=== PATIENT | male | born 1970 | race Caucasian/White ===

== ENCOUNTER 2020-12-26 07:30 | Day surgery (SDC) | payer BC ==
[2020-12-19 17:26] LABS: BASOPHILS % (AUTO) 0.7 % (0-1); EOSINOPHILS # (AUTO) 0.2 X10'3 (0-0.9); EOSINOPHILS % (AUTO) 3.6 % (0-6); LYMPHOCYTES # (AUTO) 1.7 X10'3 (1.1-4.8); LYMPHOCYTES % (AUTO) 31.5 % (21-51); MEAN CORPUSCULAR HEMOGLOBIN 30.3 PG (27.0-31.0); MEAN CORPUSCULAR HGB CONC 33.9 g/dL (33.0-36.5); MEAN CORPUSCULAR VOLUME 89.3 FL (78-98); MEAN PLATELET VOLUME 8.3 FL (7.4-10.4); MONOCYTES # (AUTO) 0.5 X10'3 (0-0.9); MONOCYTES % (AUTO) 9.4 % (2-12); NEUTROPHILS % (AUTO) 54.8 % (42-75); PRE OP HEMATOCRIT 46.5 % (42.0-52.0); PRE OP HEMOGLOBIN 15.8 g/dL (14.0-17.9); PRE OP PLATELET COUNT 271 X10'3 (140-440); PRE OP PROTIME 10.4 SECONDS (9.0-12.0); RED BLOOD COUNT 5.21 X10'6 (4.70-6.10); RED CELL DISTRIBUTION WIDTH 13.4 % (11.5-14.5)
[2020-12-19 17:28] LABS: ALBUMIN 4.4 G/DL (3.4-5.0); ALBUMIN/GLOBULIN RATIO 1.3 (1.1-1.5); ALKALINE PHOSPHATASE 59 IU/L (46-116); BLOOD UREA NITROGEN 20 MG/DL (7-18); BUN/CREATININE RATIO 14.1 (5.4-32.0); CALCIUM 9.3 MG/DL (8.5-10.1); CHLORIDE 103 MMOL/L (99-107); CREATININE 1.42 MG/DL (0.60-1.10); PRE OP ALT 49 U/L (30-65); PRE OP ANION GAP 10 (8-16); PRE OP AST 23 U/L (10-37); PRE OP BILIRUB, TOTAL 0.7 MG/DL (0.0-1.0); PRE OP GLUCOSE 88 MG/DL (70-104); PRE OP SODIUM 142 MMOL/L (135-145); TOTAL CARBON DIOXIDE 28.7 MMOL/L (24-32); TOTAL PROTEIN 7.8 G/DL (6.4-8.2); eGFR 53 ML/MIN
[~2020-12-26] VITALS: Ht 193 cm; Wt 121.9 kg
[2020-12-26] VITALS (11 sets, daily range): BP systolic 131–148; BP diastolic 81–101
[~2020-12-26 07:30] MED LIST: ASCO500C17 PO; CHOL20004 PO; LIDOcaine 1% W/epiNEPHrine 1:100,000 20ml vial ONE; MAGNESIUM THREONATE PO; cefTAZidime 1gm inj ONE; cocaine 4% topical solution 4ml bottle ONE; diazepam 5mg tablet PO PRN; famotidine 20mg tablet PO ONE; methylPREDNISolone acetate 80mg/ml inj**IM only ONE; mupirocin 2% ointment 22GM ONE; oxymetazoline 15 ML nasal spray NS ONE; ringers solution, lacted 1,000 ML IV SCH
[2020-12-26] MEDS: oxymetazoline 15 ML nasal spray NS PRN ×3 (08:29→10:44)
[2020-12-26] MEDS ORDERED: proCHLORperazine 10 MG/2 ml inj IV PRN (09:55)
[2020-12-26] MEDS ORDERED: ringers solution, lacted 1,000 ML IV SCH (09:55)
[2020-12-26] MEDS ORDERED: morphine 2 MG/ML inj. syringe IV PRN (09:55)
[2020-12-26] MEDS ORDERED: meperidine/PF 25mg/ml syringe IV PRN ×3 (09:55)
[2020-12-26] MEDS ORDERED: ondansetron/PF 4mg/2ml inj IV PRN (09:55)
[2020-12-26] MEDS ORDERED: morphine 4 MG/ML inj SYRINge IV PRN (09:55)
[2020-12-26] MEDS ORDERED: sevoflurane 250ml liquid IH ONE (10:00)
[2020-12-26] MEDS ORDERED: fentaNYL/PF 50MCG/1 ML 2ML syringe ONE ×2 (10:04→10:23)
[2020-12-26] MEDS ORDERED: midazolam 1 mg/ML 2ml injection ONE (10:06)
[2020-12-26] MEDS ORDERED: acetaminophen 1,000mg/100ml IV 100 ML IV ONE (10:27)
[2020-12-26] MEDS ORDERED: dexamethasone sod phosphate 4mg/ml inj. ONE (10:27)
[2020-12-26] MEDS ORDERED: propofol inj 20 ML IV ONE (10:27)
[2020-12-26] MEDS ORDERED: ondansetron/PF 4mg/2ml inj ONE (10:27)
[2020-12-26] MEDS ORDERED: LIDOcaine 2% (20mg/ml) 5ml vial ONE (10:27)
[2020-12-26] MEDS: mupirocin 2% ointment 22GM ONE ×2 (10:38→10:46)
--- NOTE | 2020-12-26 11:12 | NUR ---
Received from OR via [facility] IN STABLE CONDITION , accompanied by Anesthesiologist and LAB AIDE report given by [facility]. Addendum: 12/26/20 at 1154 by Katie Montero RN Amended: Links added.
[2020-12-26] MEDS ORDERED: salt irrigation nasal spray 45 ML SPRAY NS PRN (12:15)
[2020-12-26] MEDS ORDERED: mupirocin 2% ointment 22GM TP SCH (13:00)
--- NOTE | 2020-12-26 13:02 | NUR ---
PATIENT DISCHARGED FROM PACU IN STABLE CONDITION AFTER WRITTEN AND VERBAL DISCHARGE INSTRUCTIONS GIVEN. PATIENT GAVE VERBAL UNDERSTANDING OF INSTRUCTIONS GIVEN. PATIENT LEFT FACILITY VIA WHEELCHAIR WITH RN. Addendum: 12/26/20 at 1310 by Katie Montero RN Amended: Links added.
== END 2020-12-26 13:02 | disposition home or self-care (01) ==
LOC: PAS 07:30
PROVIDERS: ATTEND Otolaryngology
DX: J34.2 Deviated nasal septum (principal); J34.3 Hypertrophy of nasal turbinates; Z20.822 Contact with and (suspected) exposure to COVID-19; Z79.899 Other long term (current) drug therapy; Z79.01 Long term (current) use of anticoagulants; Z98.890 Other specified postprocedural states
CPT/HCPCS: 30140; 30520; 36415; 80053; 82948; 85025; 85576; 85610; 85730; 93005; A6402; C9250; J0131; J0713; J1040; J1100; J2001; J2250; J2405; J2704; J3010; U0003; U0005; A4618; A7000; J7120